=== PATIENT | female | born 1995 | race Caucasian/White ===

== ENCOUNTER 2019-04-01 01:16 | Emergency (ER) | payer MEDICAID ==
[~2019-04-01] VITALS: Ht 162.6 cm; Wt 69.4 kg
[~2019-04-01 01:16] MED LIST: AMOX500C2 PO; IBUP800T48 PO
[2019-04-01 01:25] VITALS: BP 127/69; PULSE 79; RESP 18; Ht 162.6 cm; Wt 69.4 kg
--- NOTE | 2019-04-01 02:53 | ERD ---
ER Documentation Chief Complaint Chief Complaint left earache since yesterday HPI This is a 24-year-old female presents emergency department with complaints of left lower toothache, ear pain since yesterday. LMP: Last month. G1, . Denies headache, head injury, loss of consciousness, dizziness, neck pain, neck stiffness, throat pain, difficulty swallowing, difficulty breathing lying flat, shoulder pain, chest pain, back pain, abdominal pain, nausea, vomiting, constipation, diarrhea, urinary symptoms, or possibility being , loss of bowel and bladder control, trauma, injury, falls, difficulty walking due to pain, numbness or tingling sensation, calf pain, recent travel, recent major surgery in the last 3 weeks, calf pain, recent long travel, recent exposure to any illness, recent antibiotic use in the last 3 months, fever, chills, seizures. Past medical history: Denies. Surgical history: Denies. Social: Denies smoking, use of alcoholic beverages, use of illegal drugs. ROS All systems reviewed and are negative except as per history of present illness. Medications Home Meds Active Scripts Amoxicillin* (Amoxicillin*) 500 Mg Cap, 500 MG PO TID for 7 Days, CAP Prov:KARINILABANANTOINETTEAR F 04/01/19 Ibuprofen* (Motrin*) 800 Mg Tab, 800 MG PO Q8 PRN for PAIN AND OR ELEVATED TEMP, #30 TAB Prov:KARINILABANANTOINETTEAR F 04/01/19 Allergies Allergies: Coded Allergies: No Known Allergy (Unverified , 04/01/19) PMhx/Soc Medical and Surgical Hx: pt denies Medical Hx, pt denies Surgical Hx Hx Alcohol Use: No Hx Substance Use: No Hx Tobacco Use: No Smoking Status: Never smoker Physical Exam Vitals Physical Exam Head: Atraumatic Eyes: Normal Conjunctiva ENT: Normal External Ears, Nose and Mouth. Bilateral ears: TMs are not erythematous. No bleeding. No discharge. No hearing loss. No mastoid tenderness. Nose: There is no frontal or maxillary sinus tenderness palpation. Throat: Uvula is in midline and nondisplaced. Tonsils are +1 bilaterally without redness and without exudates. Third left lower molar/gum has a swelling and tenderness. Tolerating secretions. Patent airway. Speaks full and clear sentences. No tripoding. Neck: Full range of motion. No meningismus. No nuchal rigidity. No signs of meningeal irritation. Resp: Clear to auscultation bilaterally. No accessory muscle use in breathing. Cardio: Regular rate and rhythm, no murmurs Abd: Soft, non tender, non distended. Normal bowel sounds. Negative Hedrick sign. Skin: No petechiae or rashes. Color appears normal for ethnicity. No skin tenting. No signs of severe dehydration. Back: No midline or flank tenderness Ext: No cyanosis, or edema Neur: Awake and alert. No neurological deficits. Psych: Normal Mood and Affect Results 24 hrs Current Medications Medications Dose Sig/Nael Start Time Status Last (Trade) Ordered Route PRN Stop Time Admin Dose Reason Admin 1 tab ONCE ONCE 04/01/19 DC 04/01/19 Acetaminophen PO 03:00 04/01/19 02:58 / 03:01 Hydrocodone Bitart (Vaughn (5/325)) Procedures/MDM Diagnostic tests: Clinical exam. Treatment: Vaughn p.o. Re-evaluation: Denies pain. No nuchal rigidity. No neurological deficits. Stated that she is comfortable to go home. Differential diagnosis I have low suspicion for sepsis, meningitis, peritonsillar abscess, mastoiditis. Final diagnosis: Dental/gum abscess. Prescription: Motrin. Amoxicillin. Follow-up with PCP in the next 24-48 hours. Follow-up with dentist in the next 24 to 48 hours. Come back here in the emergency department for any new symptoms or any worsening symptoms. All questions and concerns were answered. Patient and family members verbalized understanding and agreed with plan of care. Hemodynamically stable on discharge. Departure Diagnosis: Primary Impression: Dental abscess Additional Impressions: Gum abscess Toothache Condition: Stable Additional Instructions: Follow-up with PCP in the next 24-48 hours. Follow-up with dentist in the next 24 to 48 hours. Come back here in the emergency department for any new symptoms or any worsening symptoms. CARLOS GANT Apr 01, 2019 02:53
[2019-04-01] MEDS ORDERED: HYDROCODONE/APAP (5/325) TAB PO ONE (03:00)
== END 2019-04-01 03:07 | disposition home or self-care (01) ==
LOC: FTE 01:16
DX: K04.7 Periapical abscess without sinus (principal)
CPT/HCPCS: Z7502; Z7610; 99283